=== PATIENT | female | born 1965 | race Caucasian/White ===

== ENCOUNTER 2020-07-19 10:36 | Emergency (ER) | payer OTHER ==
[~2020-07-19 10:36] MED LIST: SILVADENE CREAM20 GM TOP; VIBRAMYCIN100 MG PO
== END 2020-07-19 11:55 | disposition home or self-care (01) ==
LOC: ER1 10:36
DX: S61.210A Laceration without foreign body of right index finger without damage to nail, initial encounter (principal); W26.0XXA Contact with knife, initial encounter
CPT/HCPCS: 29130; 99283